=== PATIENT | female | born 2000 | race Hispanic/Latino ===

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

== ENCOUNTER 2022-04-10 22:45 | Emergency (ER) | payer BC ==
[~2022-04-10] VITALS: Ht 154.9 cm; Wt 87.5 kg
[2022-04-10 22:46] VITALS: BP 147/86
[2022-04-11] MEDS ORDERED: IBUPROFEN 600 MG TABLET PO ONE
[2022-04-11] MEDS ORDERED: AZIT500T2 PO (00:03)
[2022-04-11] MEDS ORDERED: IBUP-2070 PO (00:03)
[2022-04-11] MEDS ORDERED: CETI10TA57 PO (00:03)
== END 2022-04-11 00:22 | disposition home or self-care (01) ==
LOC: EDH 22:45
DX: U07.1 COVID-19 (principal)
CPT/HCPCS: 87635; 87804 ×2; 99283; C9803